=== PATIENT | female | born 1975 ===

== ENCOUNTER 2020-02-12 06:33 | Day surgery (SDC) | payer OTHER ==
[2020-02-12] MEDS ORDERED: LOVENOX40 MG/0.4 SUBCUTANEO (11:51)
[2020-02-12] MEDS ORDERED: PERCOCET 5-3251 EACH PO (11:51)
== END 2020-02-12 13:50 | disposition home or self-care (01) ==
LOC: CIR.AMB 06:33 → ADM 10:45 → CIR.AMB 13:50
PROVIDERS: ATTEND Obstetrics & Gynecology Gynecology
DX: D27.1 Benign neoplasm of left ovary (principal); N83.291 Other ovarian cyst, right side; N83.12 Corpus luteum cyst of left ovary; K66.0 Peritoneal adhesions (postprocedural) (postinfection)